=== PATIENT | male | born 1940 | race Caucasian/White ===

== ENCOUNTER 2017-12-22 08:23 | Inpatient (IN) ==
[2017-12-22] MEDS ORDERED: Chloraseptic Spray 177 ML BOTTLE MM PRN (12:40)
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
[2017-12-22] MEDS ORDERED: Naloxone 0.4 MG/ML INJ IVP PRN (13:03)
[2017-12-22] MEDS ORDERED: Ondansetron 4 MG/2 ML VIAL IVP PRN (13:03)
[2017-12-22 13:09] LABS: Hematocrit 29.5 % (37.5-50.1); Hemoglobin 9.5 g/dL (12.9-16.9)
[2017-12-22] MEDS ORDERED: D5% in Water 1,000 ML IVC PRN (13:47)
[2017-12-22] MEDS ORDERED: *HR* Dextrose 50 % in Water (Syg) 50 ML SYRINGE IVP PRN (13:47)
[2017-12-22] MEDS ORDERED: Dextrose Gel 15 GM/37.5 ML TUBE PO PRN ×2 (13:47)
[2017-12-22] MEDS: Ringers Solution, Lactated 1,000 ML IVC SCH ×2 (13:49→21:19)
[2017-12-22 13:54] LABS: Basophils % 0.1 %; Hematocrit 28.7 % (37.5-50.1); Hemoglobin 9.3 g/dL (12.9-16.9); Immature Granulocytes % 0.9 % (0-4); Lymphocytes # 1.8 K/mcL (0.6-4.6); Lymphocytes % 8.1 %; Mean Corpuscular HGB Conc 32.4 g/dL (31.6-35.5); Mean Corpuscular Hemoglobin 29.3 pg (28.0-33.3); Mean Corpuscular Volume 90.5 fL (83.0-100.0); Mean Platelet Volume 10.5 fL (9.4-12.4); Monocytes # 1.1 K/mcL (0.0-1.3); Monocytes % 4.9 %; Neutrophils # 19.2 K/mcL (1.6-8.9); Nucleated Red Blood Cells 0.1 /100 WBC (0); Platelet Count 321 K/mcL (140-400); Red Blood Count 3.17 M/mcL (4.19-5.50); Red Cell Distribution Width 14.2 % (11.5-14.5)
[2017-12-22 13:59] LABS: INR 1.2; Prothrombin Time 13.7 Seconds (9.4-12.1)
[2017-12-22 14:02] LABS: VBG HCO3 18 mEq/L (21-27); VBG PCO2 33 mmHg (41-51); VBG PH 7.34 pH Units (7.32-7.42); VBG PO2 67 mmHg (25-50)
[2017-12-22 14:18] LABS: Blood Urea Nitrogen 47 mg/dL (8-23); Carbon Dioxide 19 mEq/L (23-29); Chloride 107 mEq/L (98-107); Potassium 4.5 mEq/L (3.5-5.1); Sodium 143 mEq/L (136-145)
[2017-12-22 14:19] LABS: Alanine Aminotransferase 16 Units/L (7-52); Albumin 3.6 g/dL (3.5-5.7); Albumin/Globulin Ratio 1.9 (1.1-2.2); Alkaline Phosphatase 52 Units/L (34-104); Aspartate Amino Transferase 12 Units/L (13-39); BUN/Creatinine Ratio 48 (6-26); Bilirubin,Total 0.5 mg/dL (0.3-1.0); Calcium 8.2 mg/dL (8.6-10.3); Globulin 1.9 g/dL (2.4-3.5); Glucose 232 mg/dL (70-105); Magnesium 1.9 mg/dL (1.6-2.6); Osmolality,Calculated 316 (280-300); Total Protein 5.5 g/dL (6.4-8.9); eGFR For Non-African Americans > 60 (> 60)
[2017-12-22 14:23] LABS: Troponin I 0.06 ng/mL (< 0.04)
[2017-12-22] MEDS ORDERED: Insulin LISPRO 300 UNITS/3 ML VIAL SQ ONE (15:05)
[2017-12-22] MEDS: Insulin LISPRO 300 UNITS/3 ML VIAL SQ SCH ×2 (15:09→18:26)
[2017-12-22] MEDS: Pantoprazole 40 MG in 0.9 % Sodium Chloride Mini Bag 100 ML IVC SCH ×2 (15:11→21:19)
[2017-12-22 15:16] LABS: Acetaminophen < 10 mcg/mL (10-20); Ethanol < 10 mg/dL (Less than 10); Salicylate < 2.5 mg/dL (15.0-30.0)
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
[2017-12-22] MEDS: 0.9 % Sodium Chloride 250 ML IVC SCH (17:16)
[2017-12-22 17:59] LABS: Bilirubin,Urine Negative (Negative); Blood,Urine Negative (Negative); Clarity,Urine Clear (Clear); Color,Urine Yellow (Yellow); Glucose,Urine (UA) >=1000 mg/dL (Normal); Ketones,Urine 40 mg/dL (Negative); Leukocyte Esterase,Urine Negative (Negative); Nitrite,Urine Negative (Negative); PH,Urine 5.5 pH Units (5.0-8.0); Protein,Urine Negative (Neg-Trace); Specific Gravity,Urine 1.023 (1.010-1.025); Urobilinogen,Urine Normal (Normal)
[2017-12-22 21:35] LABS: Hematocrit 30.3 % (37.5-50.1); Hemoglobin 9.8 g/dL (12.9-16.9)
[2017-12-22 21:52] LABS: BUN/Creatinine Ratio 48 (6-26); Blood Urea Nitrogen 49 mg/dL (8-23); Calcium 8.5 mg/dL (8.6-10.3); Carbon Dioxide 19 mEq/L (23-29); Chloride 113 mEq/L (98-107); Glucose 216 mg/dL (70-105); Osmolality,Calculated 314 (280-300); Potassium 4.2 mEq/L (3.5-5.1); Sodium 142 mEq/L (136-145); eGFR For Non-African Americans > 60 (> 60)
[2017-12-23] MEDS: 0.9 % Sodium Chloride 250 ML IVC SCH ×2 (01:25→07:56)
[2017-12-23] MEDS: Insulin LISPRO 300 UNITS/3 ML VIAL SQ SCH ×4 (01:26→20:28)
[2017-12-23] MEDS: Pantoprazole 40 MG in 0.9 % Sodium Chloride Mini Bag 100 ML IVC SCH ×5 (03:17→22:16)
[2017-12-23 03:24] LABS: Basophils % 0.1 %; Lymphocytes % 9.7 %; Mean Platelet Volume 10.5 fL (9.4-12.4); Nucleated Red Blood Cells 0.4 /100 WBC (0)
[2017-12-23 03:25] LABS: Hematocrit 28.2 % (37.5-50.1); Hemoglobin 9.1 g/dL (12.9-16.9); Immature Granulocytes % 1.6 % (0-4); Lymphocytes # 2.6 K/mcL (0.6-4.6); Mean Corpuscular HGB Conc 32.3 g/dL (31.6-35.5); Mean Corpuscular Volume 89.8 fL (83.0-100.0); Monocytes % 9.1 %; Neutrophils # 21.3 K/mcL (1.6-8.9); Platelet Count 339 K/mcL (140-400); Red Blood Count 3.14 M/mcL (4.19-5.50); Red Cell Distribution Width 15.4 % (11.5-14.5); Segmented Neutrophils % 79.5 %
[2017-12-23 03:32] LABS: Monocytes # 2.4 K/mcL (0.0-1.3)
[2017-12-23 03:43] LABS: Alanine Aminotransferase 13 Units/L (7-52); Albumin 3.6 g/dL (3.5-5.7); Alkaline Phosphatase 50 Units/L (34-104); Aspartate Amino Transferase 11 Units/L (13-39); BUN/Creatinine Ratio 48 (6-26); Bilirubin,Total 0.8 mg/dL (0.3-1.0); Blood Urea Nitrogen 49 mg/dL (8-23); Calcium 8.6 mg/dL (8.6-10.3); Carbon Dioxide 18 mEq/L (23-29); Chloride 114 mEq/L (98-107); Globulin 1.8 g/dL (2.4-3.5); Glucose 218 mg/dL (70-105); Osmolality,Calculated 316 (280-300); Potassium 3.9 mEq/L (3.5-5.1); Sodium 143 mEq/L (136-145); Total Protein 5.4 g/dL (6.4-8.9); eGFR For Non-African Americans > 60 (> 60)
[2017-12-23 03:44] LABS: Chol/HDL Ratio 4.4 (0-4.9)
[2017-12-23 03:58] LABS: Thyroid Stimulating Hormone 0.787 mcIU/mL (0.340-5.600)
[2017-12-23 04:12] LABS: Macrocytosis Present (Not Present); Platelet Estimate Normal (Normal); Polychromasia 1+ (Not Present)
[2017-12-23 08:29] LABS: Hematocrit 28.4 % (37.5-50.1)
--- NOTE | 2017-12-23 08:40 | Internal Med Progress Note ---
Hospitalist Progress Note - Encounter Date of Encounter: 12/23/17 Time of Encounter: 08:30 - Subjective Interval History: awake, ngt out by surgery. + nausea, no emesis, no abd pain. No further black/ bloody bms. Denies fevers or chills. + dry mouth. awaiting egd and cscope - Exam Vitals: Temp Pulse Resp BP Pulse Ox 98.6 F 105 20 139/84 99 12/23/17 06:59 12/23/17 06:59 12/23/17 06:59 12/23/17 06:59 12/23/17 06:59 Exam: General: awake, alert, appears stated age HEENT: pupils equal, round,dry mucus membranes, no conjuntival pallor, Cardiovascular: reg rate and rhythm, normal S1 & S2, no murmurs no lower extremity edema Lungs:Normal breath sounds, no wheezes, or crackles. Normal respiratory effort on ra Abdomen:Soft, non tender, non-distended, no rigidity, + bowel sounds, no guarding, no hsm appreciated Neurological: AAOx3, CN grossly intact Skin:Nno pallor, no jaundice, no rash, purpura or petechiae - Assessment and Plan (1) Upper GI bleeding Current Visit: Yes Status: Acute Assessment and Plan: daily asa and nsaid use -no abd imaging obtained at [facility], came [facility] with ngt in place drainging coffee ground emesis -he also had constipation for days prior to onset of symptoms, hx of hernia, gb surgery, need to rule out obstruction with amount of NGT outpt -ct a/p without acute findings, no obstruction, no apparent infection, no free air Agressive IVFs -1 gm hgb drop since [place] [facility] 10-->9.3 on admit -1 unit prbc on admit 12/22 serial h/hs stable currently cont protonix gtt diet addvanced to clears last night, bowel prep and no npo awating egd and cscope 12/23 stool studies pending surgery following (2) Acute blood loss anemia Current Visit: Yes Status: Acute Assessment and Plan: Hgb most recently 15 on record review hgb 10 at [facility], drop to 9.3 on admit labs here 2/2 acute gi bleed -1 unit prbc 12/22 -given mild trop elevation as below keep hgb >8 -serial h/hs have now remained [place] cont to monitor (3) Diabetes mellitus Current Visit: Yes Status: Acute Assessment and Plan: Hyperglycemia at [facility] with bs 400s, BHB >2, no anion gap--HHNK with one time 8 unit bolus of insulin 1L NS and bs to 200s, did NOT start insulin gtt on oral agents at home will need to rule out infection while here as cause of hyperglycemia with leukocytosis -bs here low 200s -as npo q 6 hr accu checks and SSI for now, would rather him be somewhat high is acutely seriously ill setting -agressive ivfs wtih LR -prn hypoglycemics -repeat BHB >2 -vbg without acidosis -leukocytosis garcia as below -UA >1000 glc, + ketones -cont to monitor closely and adjust insulin as needed, given he is npo will hold on adjustments untill after procedure to assess what intake is anticipated for today (4) Leukocytosis Current Visit: Yes Status: Acute Assessment and Plan: WBC 22.4, may be stress reaction but need to rule out infectious etiology, increasing, without fever -CXR [facility] neg -bl cx obtained at [facility] pending -check ua: neg, no cx sent -ct a/p neg -check stool studies, pending -no abx at this time as no identifiable source of infection, afebrile -cont to monitor (5) COPD (chronic obstructive pulmonary disease) Current Visit: Yes Status: Chronic Assessment and Plan: stable at this time -not on any standing nebs/inhalers at home -no home o2 -o2 prn, nebs prn (6) HTN (hypertension) Current Visit: Yes Status: Chronic Assessment and Plan: Notes he has not needed to take any home antihypertensive for months due to normotensive bps without them -monitor bp trends, no antihypertensives in acute gib setting (7) Hyperlipidemia Current Visit: Yes Status: Chronic Assessment and Plan: hold home statin at this time (8) Metabolic acidosis, increased anion gap Current Visit: Yes Status: Acute Assessment and Plan: Noted to have bicarb of 13 and no anion gap at [facility] Here he has elevated AG 17 and bicarb now up to 19 AG now closed, bicarb stable -vbg reviewed, no acidosis -lactate was 5s at [facility] and 1.7 here -given asa use--agma--checked stat etoh, asa and Tylenol levels -all neg -cont LR fluids (9) Troponin level elevated Current Visit: Yes Status: Acute Assessment and Plan: Troponin Elevation Trop on admission here checked due to gib and anemia--0.06 -no cad hx, + hx diabetes, htn, hld -pt notes history of normal stress test outpt -tele -trend trops- peaked at 0.06 and now normal, asx -keep hgb >8 -ekg reviewed and appeared sinus rhythm and no st depression elevation of twi can be identified, + baseline artifact -tsh wnl, lipid panel w low hdl otherwise wnl, a1c pending DVT Prophylaxis: scds - Time Spent with Patient Total time spent is greater than 50% in coordination of care (as documented) at patient's floor/unit and/or counseling patient: 25 - 35 minutes Plan of Care Discussed with: patient Internal Medicine: Result - Labs CBC & Chem 7: 12/23/17 03:11 12/23/17 03:11 Labs: Short CBC 12/22/17 12/22/17 12/22/17 Range/Units 13:00 13:45 21:10 WBC 22.4 H (4.3-11.1) K/mcL Hgb 9.5 L 9.3 L 9.8 L (12.9-16.9) g/dL Hct 29.5 L 28.7 L 30.3 L (37.5-50.1) % Plt Count 321 (140-400) K/mcL Neutrophils # 19.2 H (1.6-8.9) K/mcL 12/23/17 Range/Units 03:11 WBC 26.8 H (4.3-11.1) K/mcL Hgb 9.1 L (12.9-16.9) g/dL Hct 28.2 L (37.5-50.1) % Plt Count 339 (140-400) K/mcL Neutrophils # 21.3 H (1.6-8.9) K/mcL BMP 12/22/17 12/22/17 12/23/17 13:45 21:10 03:11 Sodium 143 142 143 Potassium 4.5 4.2 3.9 Chloride 107 113 H 114 H Carbon Dioxide 19 L 19 L 18 L BUN 47 H 49 H 49 H Creatinine 0.98 1.02 1.03 Glucose 232 H 216 H 218 H Calcium 8.2 L 8.5 L 8.6 Cardiac Enzymes 12/22/17 12/22/17 12/23/17 Range/Units 13:45 21:10 03:11 Troponin I 0.06 H* 0.04 H* 0.03 (< 0.04) ng/mL Liver Function 12/22/17 12/23/17 Range/Units 13:45 03:11 Total Bilirubin 0.5 0.8 (0.3-1.0) mg/dL AST 12 L 11 L (13-39) Units/L ALT 16 13 (7-52) Units/L Alkaline Phosphatase 52 50 (34-104) Units/L Albumin 3.6 3.6 (3.5-5.7) g/dL Urine 12/22/17 Range/Units 17:37 Urine Color Yellow (Yellow) Urine Clarity Clear (Clear) Urine pH 5.5 (5.0-8.0) pH Units Ur Specific Hubbell 1.023 (1.010-1.025) Urine Protein Negative (Neg-Trace) mg/dL Urine Glucose (UA) >=1000 H (Normal) mg/dL - ABG Interpretation ABG results: PT/INR, D-dimer PT 13.7 Seconds (9.4-12.1) H 12/22/17 13:45 - Impressions Impressions Abdomen/Pelvis CT 12/22/17 13:36 IMPRESSION: 1. Nonobstructing calculi bilateral kidneys. 2. Left parapelvic and cortical renal cysts. 3. Cholecystectomy. 4. NG tube is in place, tip at the gastric mid body. 5. Diverticulosis coli without CT evidence of acute diverticulitis. 6. Calcific atherosclerotic disease aorta. D/ / Ajay Monzon / Ajay Monzon Interpreting Provider: Ajay Monzon - VTE Reasons for not Prescribing Prophylaxis: Medical contraindication Documentation of Mechanical Device: Intermittent pneumatic compression device Consult Discharge Plan - Plan Referrals: Winnie Parikh, ANGLESMITH [Primary Care Provider] - (3) Diabetes mellitus Qualifiers: Diabetes mellitus type: type 2 Diabetes mellitus terminal worker insulin use: without terminal worker use Diabetes mellitus complication status: with unspecified complications Qualified Code(s): E11.8 - Type 2 diabetes mellitus with unspecified complications (4) Leukocytosis Qualifiers: Leukocytosis type: unspecified Qualified Code(s): D72.829 - Elevated white blood cell count, unspecified (5) COPD (chronic obstructive pulmonary disease) Qualifiers: COPD type: unspecified COPD Qualified Code(s): J44.9 - Chronic obstructive pulmonary disease, unspecified (6) HTN (hypertension) Qualifiers: Hypertension type: essential hypertension Qualified Code(s): I10 - Essential (primary) hypertension (7) Hyperlipidemia Qualifiers: Hyperlipidemia type: unspecified Qualified Code(s): E78.5 - Hyperlipidemia, unspecified
[2017-12-23] MEDS ORDERED: *HR* Midazolam HCl 5 MG/5 ML VIAL IVP ONE (09:28)
[2017-12-23] MEDS ORDERED: *HR* FentaNYL (PF) 100 MCG/2 ML VIAL ONE (09:28)
--- NOTE | 2017-12-23 09:28 | General Surgery Progress Note ---
Date of Encounter: 12/23/17 Time of Encounter: 09:27 - Assessment and Plan (1) Upper GI bleeding Current Visit: Yes Status: Acute 77M with UGIB and LGIB; will plan for EGD today pending those findings will determine the timing for a colooscopy; Subjective Patient reports: no new complaints Objective Vital Signs - Last 8 Hours Temp Pulse Resp BP Pulse Ox 12/23/17 06:59 98.6 F 105 20 139/84 99 12/23/17 03:52 98.3 F 102 20 153/77 100 Intake and Output 12/22/17 12/23/17 12/23/17 23:59 07:59 15:59 Intake Total 1600 / 1600 300 / 300 Output Total 1775 / 1775 200 / 200 Balance -175 / -175 100 / 100 Intake: IV Fluids 1250 / 1250 300 / 300 0.9 % Sodium Chloride 250 ML @ 150 / 150 100 / 100 25 mls/hr IVC .Q10H NITIN Rx#: [id number] Protonix 40 MG In 0.9 % Sodium 100 / 100 200 / 200 Chloride (Mini-Bag +) 100 ML @ 20 mls/hr IVC .Q5H NITIN Rx#: [id number] Lactated Ringers 1,000 ML @ 125 1000 / 1000 mls/hr IVC .Q8H NITIN Rx#: [id number] Blood Product 350 / 350 Rbcs Leuko Poor As-1 Unit 350 / 350 [id number] Output: Urine 825 / 825 Gastric Tube Lavage Amount 950 / 950 200 / 200 Left Nare 950 / 950 200 / 200 Other: Meal NPO Percent of Meal Consumed 0% # Voids 1 Weight 105.9 kg Blood Glucose* 204 223 Patient Weight 12/23/17 23:59 Weight 105.9 kg - General physical appearance no distress - Respiratory normal expansion, normal respiratory effort - Cardiovascular Cardiovascular exam: Present: RRR - Abdomen Abdomen: Present: soft, non tender - Neurologic CN 2-12 grossly intact - Labs 12/23/17 08:20 12/23/17 03:11 Diabetes panel 12/22/17 12/22/17 12/23/17 Range/Units 13:45 21:10 03:11 Sodium 143 142 (136-145) mEq/L Potassium 4.5 4.2 (3.5-5.1) mEq/L Chloride 107 113 H (98-107) mEq/L Carbon Dioxide 19 L 19 L (23-29) mEq/L BUN 47 H 49 H (8-23) mg/dL Creatinine 0.98 1.02 (0.70-1.30) mg/dL Glucose 232 H 216 H (70-105) mg/dL Calcium 8.2 L 8.5 L (8.6-10.3) mg/dL AST 12 L (13-39) Units/L ALT 16 (7-52) Units/L Alkaline Phosphatase 52 (34-104) Units/L Albumin 3.6 (3.5-5.7) g/dL Triglycerides 122 (< 150) mg/dL HDL Cholesterol 20 L (40-59) mg/dL 12/23/17 Range/Units 03:11 Sodium 143 (136-145) mEq/L Potassium 3.9 (3.5-5.1) mEq/L Chloride 114 H (98-107) mEq/L Carbon Dioxide 18 L (23-29) mEq/L BUN 49 H (8-23) mg/dL Creatinine 1.03 (0.70-1.30) mg/dL Glucose 218 H (70-105) mg/dL Calcium 8.6 (8.6-10.3) mg/dL AST 11 L (13-39) Units/L ALT 13 (7-52) Units/L Alkaline Phosphatase 50 (34-104) Units/L Albumin 3.6 (3.5-5.7) g/dL Triglycerides (< 150) mg/dL HDL Cholesterol (40-59) mg/dL Thyroid panel 12/23/17 Range/Units 03:11 TSH 0.787 (0.340-5.600) mcIU/mL Calcium panel 12/22/17 12/22/17 12/23/17 Range/Units 13:45 21:10 03:11 Calcium 8.2 L 8.5 L 8.6 (8.6-10.3) mg/dL Albumin 3.6 3.6 (3.5-5.7) g/dL Pituitary panel 12/22/17 12/22/17 12/23/17 Range/Units 13:45 21:10 03:11 Sodium 143 142 (136-145) mEq/L Potassium 4.5 4.2 (3.5-5.1) mEq/L Chloride 107 113 H (98-107) mEq/L Carbon Dioxide 19 L 19 L (23-29) mEq/L BUN 47 H 49 H (8-23) mg/dL Creatinine 0.98 1.02 (0.70-1.30) mg/dL Glucose 232 H 216 H (70-105) mg/dL Calcium 8.2 L 8.5 L (8.6-10.3) mg/dL TSH 0.787 (0.340-5.600) mcIU/mL 12/23/17 Range/Units 03:11 Sodium 143 (136-145) mEq/L Potassium 3.9 (3.5-5.1) mEq/L Chloride 114 H (98-107) mEq/L Carbon Dioxide 18 L (23-29) mEq/L BUN 49 H (8-23) mg/dL Creatinine 1.03 (0.70-1.30) mg/dL Glucose 218 H (70-105) mg/dL Calcium 8.6 (8.6-10.3) mg/dL TSH (0.340-5.600) mcIU/mL Adrenal panel 12/22/17 12/22/17 12/23/17 Range/Units 13:45 21:10 03:11 Sodium 143 142 143 (136-145) mEq/L Potassium 4.5 4.2 3.9 (3.5-5.1) mEq/L Chloride 107 113 H 114 H (98-107) mEq/L Carbon Dioxide 19 L 19 L 18 L (23-29) mEq/L BUN 47 H 49 H 49 H (8-23) mg/dL Creatinine 0.98 1.02 1.03 (0.70-1.30) mg/dL Glucose 232 H 216 H 218 H (70-105) mg/dL Calcium 8.2 L 8.5 L 8.6 (8.6-10.3) mg/dL Total Bilirubin 0.5 0.8 (0.3-1.0) mg/dL AST 12 L 11 L (13-39) Units/L ALT 16 13 (7-52) Units/L Alkaline Phosphatase 52 50 (34-104) Units/L Albumin 3.6 3.6 (3.5-5.7) g/dL - VTE Reasons for not Prescribing Prophylaxis: Medical contraindication Documentation of Mechanical Device: Intermittent pneumatic compression device Consult Discharge Plan - Plan Referrals: Winnie Parikh, INSURANCE AND BENEFITS CLERK [Primary Care Provider] -
--- NOTE | 2017-12-23 09:28 | Pre-Sedation Evaluation ---
Pre-sedation evaluation - Pre-sedation checklist Date of procedure: 12/23/17 Procedure: EGD Recent Vitals: Last Vital Signs Temp 98.6 F 12/23/17 06:59 Pulse 105 12/23/17 06:59 Resp 20 12/23/17 06:59 BP 139/84 12/23/17 06:59 Pulse Ox 99 12/23/17 06:59 H&P (including ROS) documented in medical record: Yes Dietary Status: NPO after Midnight ASA Classification *see protocol: CLASS II-Mild systemic disease Cardiac Registry (Cardio Only) - Functional Capacity - Clincal Frailty Scale
[2017-12-23] MEDS: *HR* FentaNYL (PF) 100 MCG/2 ML VIAL IVP ONE ×2 (10:20→14:23)
[2017-12-23] MEDS: 0.9 % Sodium Chloride 500 ML IVC SCH ×2 (10:21→20:22)
[2017-12-23] MEDS: *HR* Midazolam HCl 5 MG/5 ML VIAL IVP ONE ×2 (10:21→14:23)
[2017-12-23 10:54] LABS: Estimated Average Glucose 146 mg/dl; Hemoglobin A1C 6.7 %
[2017-12-23] MEDS ORDERED: Insulin LISPRO 300 UNITS/3 ML VIAL SQ SCH (12:00)
--- NOTE | 2017-12-23 12:12 | Electrocardiograph Report ---
[address] [place], [place] [address] Test Date: 2017-12-23 Pat Name: Jose Francisco Redd Department: 110 Room: 2N07 Gender: M Dialysis Social Worker: : 1940 Requested By: Nasima Valadez Order Number: [id number] Reading MD: Jess Eaton Measurements Intervals [place] Rate: 100 P: 13 GA: 132 QRS: 16 QRSD: 94 T: 30 QT: 337 QTc: 394 Interpretive Statements SINUS TACHYCARDIA MODERATE T-WAVE ABNORMALITY, CONSIDER LATERAL ISCHEMIA Electronically Signed On 12-23-2017 12:10:38 EDT by Jess Eaton
[2017-12-23] MEDS: Sucralfate 1 GM TABLET PO SCH ×3 (12:41→22:17)
[2017-12-23 14:02] LABS: Hematocrit 27.3 % (37.5-50.1); Hemoglobin 8.8 g/dL (12.9-16.9)
[2017-12-24] MEDS: Pantoprazole 40 MG in 0.9 % Sodium Chloride Mini Bag 100 ML IVC SCH ×2 (03:45→06:20)
[2017-12-24 05:25] LABS: Basophils % 0.2 %; Hematocrit 24.6 % (37.5-50.1); Hemoglobin 7.8 g/dL (12.9-16.9); Immature Granulocytes % 2.3 % (0-4); Lymphocytes # 3.4 K/mcL (0.6-4.6); Mean Corpuscular HGB Conc 31.7 g/dL (31.6-35.5); Mean Corpuscular Hemoglobin 29.8 pg (28.0-33.3); Mean Corpuscular Volume 93.9 fL (83.0-100.0); Mean Platelet Volume 10.5 fL (9.4-12.4); Monocytes # 2.3 K/mcL (0.0-1.3); Monocytes % 9.9 %; Neutrophils # 16.7 K/mcL (1.6-8.9); Platelet Count 330 K/mcL (140-400); Red Blood Count 2.62 M/mcL (4.19-5.50); Red Cell Distribution Width 16.8 % (11.5-14.5); Segmented Neutrophils % 72.6 %
[2017-12-24 05:40] LABS: BUN/Creatinine Ratio 43 (6-26); Blood Urea Nitrogen 43 mg/dL (8-23); Calcium 8.3 mg/dL (8.6-10.3); Carbon Dioxide 22 mEq/L (23-29); Chloride 110 mEq/L (98-107); Glucose 211 mg/dL (70-105); Magnesium 2.1 mg/dL (1.6-2.6); Osmolality,Calculated 311 (280-300); Potassium 3.6 mEq/L (3.5-5.1); Sodium 142 mEq/L (136-145); eGFR For Non-African Americans > 60 (> 60)
[2017-12-24] MEDS: 0.9 % Sodium Chloride 500 ML IVC SCH (06:20)
[2017-12-24] MEDS: Sucralfate 1 GM TABLET PO SCH ×4 (06:21→20:44)
[2017-12-24] MEDS: Insulin LISPRO 300 UNITS/3 ML VIAL SQ SCH ×4 (08:28→20:45)
--- NOTE | 2017-12-24 08:33 | General Surgery Progress Note ---
Date of Encounter: 12/24/17 Time of Encounter: 08:30 - Assessment and Plan (1) Upper GI bleeding Current Visit: Yes Status: Acute 77M with UGIB and LGIB; gastric ulcers found on EGD; now with LLQ abdominal pain ; CLD, bowel prep plan for colonoscopy tomorrow will reassess abdominal pain later today; if still having pain or worsening pain , then will order CT scan Subjective Patient reports: no new complaints Objective Vital Signs - Last 8 Hours Temp Pulse Resp BP Pulse Ox 12/24/17 07:11 98.3 F 86 18 148/67 100 12/24/17 03:50 17 100 12/24/17 03:36 99.1 F 92 20 153/69 100 Intake and Output 12/23/17 12/24/17 12/24/17 23:59 07:59 15:59 Intake Total 2170 / 2170 162.6 / 162.6 Output Total 375 / 375 900 / 900 Balance 1795 / 1795 -737.4 / -737.4 Intake: IV Fluids 1350 / 1350 162.6 / 162.6 0.9 % Sodium Chloride 500 ML @ 0 / 0 50 mls/hr IVC .Q10H NITIN Rx#: [id number] 0.9 % Sodium Chloride 250 ML @ 250 / 250 25 mls/hr IVC .Q10H NITIN Rx#: [id number] Protonix 40 MG In 0.9 % Sodium 100 / 100 162.6 / 162.6 Chloride (Mini-Bag +) 100 ML @ 20 mls/hr IVC .Q5H NITIN Rx#: [id number] Oral 820 / 820 Output: Urine 375 / 375 900 / 900 Other: Meal Dinner Percent of Meal Consumed 5% Weight 106.7 kg Blood Glucose* 279 179 Patient Weight 12/24/17 23:59 Weight 106.7 kg - General physical appearance no distress - Respiratory normal expansion, normal respiratory effort - Cardiovascular Cardiovascular exam: Present: RRR - Abdomen Abdomen: Present: soft, tender Abdominal Tenderness: LLQ - Neurologic CN 2-12 grossly intact - Psychiatric oriented to time, oriented to person, oriented to place - Labs 12/24/17 05:03 12/24/17 05:03 Diabetes panel 12/23/17 12/24/17 Range/Units 03:11 05:03 Sodium 142 (136-145) mEq/L Potassium 3.6 (3.5-5.1) mEq/L Chloride 110 H (98-107) mEq/L Carbon Dioxide 22 L (23-29) mEq/L BUN 43 H (8-23) mg/dL Creatinine 0.99 (0.70-1.30) mg/dL Glucose 211 H (70-105) mg/dL Hemoglobin A1c 6.7 H ( - 5.6) % Calcium 8.3 L (8.6-10.3) mg/dL Calcium panel 12/24/17 Range/Units 05:03 Calcium 8.3 L (8.6-10.3) mg/dL Pituitary panel 12/24/17 Range/Units 05:03 Sodium 142 (136-145) mEq/L Potassium 3.6 (3.5-5.1) mEq/L Chloride 110 H (98-107) mEq/L Carbon Dioxide 22 L (23-29) mEq/L BUN 43 H (8-23) mg/dL Creatinine 0.99 (0.70-1.30) mg/dL Glucose 211 H (70-105) mg/dL Calcium 8.3 L (8.6-10.3) mg/dL Adrenal panel 12/24/17 Range/Units 05:03 Sodium 142 (136-145) mEq/L Potassium 3.6 (3.5-5.1) mEq/L Chloride 110 H (98-107) mEq/L Carbon Dioxide 22 L (23-29) mEq/L BUN 43 H (8-23) mg/dL Creatinine 0.99 (0.70-1.30) mg/dL Glucose 211 H (70-105) mg/dL Calcium 8.3 L (8.6-10.3) mg/dL - VTE Reasons for not Prescribing Prophylaxis: Medical contraindication Documentation of Mechanical Device: Intermittent pneumatic compression device Consult Discharge Plan - Plan Referrals: Winnie Parikh CNP [Primary Care Provider] - 01/01/18 11:00 am
[2017-12-24] MEDS ORDERED: 0.9 % Sodium Chloride 250 ML ONE (11:43)
[2017-12-24] MEDS ORDERED: Isovue-370 500 ML INFUS..BTL IV ONE (12:13)
[2017-12-24] MEDS: 0.9 % Sodium Chloride 250 ML IVC SCH (12:34)
--- NOTE | 2017-12-24 12:39 | Internal Med Progress Note ---
Hospitalist Progress Note - Encounter Date of Encounter: 12/24/17 Time of Encounter: 12:44 - Subjective Interval History: No acute events. Denies chest pain, SOB, n/v. Denies abdominal pain. He has some fatigue that is improving he now can ambulate with assistance. - Exam Vitals: Temp Pulse Resp BP Pulse Ox 98.7 F 87 18 142/71 100 12/24/17 12:27 12/24/17 12:27 12/24/17 12:27 12/24/17 12:27 12/24/17 12:27 Exam: General: awake, alert, appears stated age HEENT: dry mucus membranes, + conjunctival pallor Cardiovascular: reg rate and rhythm, normal S1 & S2, no murmurs no lower extremity edema Lungs:Normal breath sounds, no wheezes, or crackles. Normal respiratory effort on ra Abdomen:Soft, non tender, non-distended, no rigidity, + bowel sounds, no guarding Neurological: AAOx3, CN grossly intact Ext: trace bipedal edema - Assessment and Plan (1) Upper GI bleeding Current Visit: Yes Status: Acute Assessment and Plan: daily asa and nsaid use -no abd imaging obtained at [place], came to [facility] with ngt in place drainging coffee ground emesis -he also had constipation for days prior to onset of symptoms, hx of hernia, gb surgery, need to rule out obstruction with amount of NGT outpt -ct a/p without acute findings, no obstruction, no apparent infection, no free air Agressive IVFs -1 gm hgb drop since [place] 10-->9.3 on admit -1 unit prbc on admit 12/22 H pylori biopsy sent after EGD surgery following Hgb 7.8 today, will trasnfuse additional 2 units PRBC today Gastritis with ulcers seen on EGD 12.23, continue ppi and carafate. CT abdomen/pelvis (with contrast) today. (2) Acute blood loss anemia Current Visit: Yes Status: Acute Assessment and Plan: Hgb most recently 15 on record review hgb 10 at [place], drop to 9.3 on admit labs here 2/2 acute gi bleed -1 unit prbc 12/22 -given mild trop elevation as below keep hgb >8 Hemoglobin 7.8 today, will trasnfuse additional 2 units PRBC. Per Surgery eval, possible colonoscopy tomorrow, pending CT abdomen/pelvis results. (3) Diabetes mellitus Current Visit: Yes Status: Acute Assessment and Plan: Hyperglycemia at [place] with bs 400s, BHB >2, no anion gap--HHNK with one time 8 unit bolus of insulin 1L NS and bs to 200s, did NOT start insulin gtt on oral agents at home will need to rule out infection while here as cause of hyperglycemia with leukocytosis -bs here low 200s -as npo q 6 hr accu checks and SSI for now, would rather him be somewhat high is acutely seriously ill setting -agressive ivfs wtih LR -prn hypoglycemics -repeat BHB >2 -vbg without acidosis -leukocytosis garcia as below -UA >1000 glc, + ketones Insulin sliding scale and diabetic diet. (4) Leukocytosis Current Visit: Yes Status: Acute Assessment and Plan: WBC 22.4, may be stress reaction but need to rule out infectious etiology, increasing, without fever -CXR [place] neg -bl cx obtained at [place] pending -check ua: neg, no cx sent -ct a/p neg -check stool studies, pending -no abx at this time as no identifiable source of infection, afebrile. There is CT abdomen/pelvis scheduled for today. Will await results if patient possibly has a colitis or diverticulitis. Currently hemodynamically stable, afebrile. (5) COPD (chronic obstructive pulmonary disease) Current Visit: Yes Status: Chronic Assessment and Plan: stable at this time -not on any standing nebs/inhalers at home -no home o2 -o2 prn, nebs prn (6) HTN (hypertension) Current Visit: Yes Status: Chronic Assessment and Plan: Notes he has not needed to take any home antihypertensive for months due to normotensive bps without them -monitor bp trends, no antihypertensives in acute gib setting (7) Hyperlipidemia Current Visit: Yes Status: Chronic Assessment and Plan: hold home statin at this time (8) Metabolic acidosis, increased anion gap Current Visit: Yes Status: Acute Assessment and Plan: Noted to have bicarb of 13 and no anion gap at [facility] Here he has elevated AG 17 and bicarb now up to 19 AG now closed, bicarb stable -vbg reviewed, no acidosis -lactate was 5s at [place] and 1.7 here -given asa use--agma--checked stat etoh, asa and Tylenol levels -all neg Hold fluids, while getting PRBC currently. (9) Troponin level elevated Current Visit: Yes Status: Acute Assessment and Plan: Troponin Elevation Trop on admission here checked due to gib and anemia--0.06 -no cad hx, + hx diabetes, htn, hld -pt notes history of normal stress test outpt -trend trops- peaked at 0.06 and now normal, asx, now is negative. -ekg reviewed and appeared sinus rhythm and no st depression elevation of twi can be identified, + baseline artifact -tsh wnl, lipid panel w low hdl otherwise wnl Troponin now wnl. - Time Spent with Patient Total time spent is greater than 50% in coordination of care (as documented) at patient's floor/unit and/or counseling patient: Internal Medicine: Result - Labs CBC & Chem 7: 12/24/17 05:03 12/24/17 05:03 Labs: Short CBC 12/23/17 12/24/17 Range/Units 13:34 05:03 WBC 22.9 H (4.3-11.1) K/mcL Hgb 8.8 L 7.8 L (12.9-16.9) g/dL Hct 27.3 L 24.6 L (37.5-50.1) % Plt Count 330 (140-400) K/mcL Neutrophils # 16.7 H (1.6-8.9) K/mcL BMP 12/24/17 05:03 Sodium 142 Potassium 3.6 Chloride 110 H Carbon Dioxide 22 L BUN 43 H Creatinine 0.99 Glucose 211 H Calcium 8.3 L - ABG Interpretation ABG results: PT/INR, D-dimer PT 13.7 Seconds (9.4-12.1) H 12/22/17 13:45 - VTE Reasons for not Prescribing Prophylaxis: Medical contraindication Documentation of Mechanical Device: Intermittent pneumatic compression device Consult Discharge Plan - Plan Referrals: Winnie Parikh, FIELD SAMPLING TECHNICIAN [Primary Care Provider] - 01/01/18 11:00 am (3) Diabetes mellitus Qualifiers: Diabetes mellitus type: type 2 Diabetes mellitus nursing home insulin use: without terminal clerk use Diabetes mellitus complication status: with unspecified complications Qualified Code(s): E11.8 - Type 2 diabetes mellitus with unspecified complications (4) Leukocytosis Qualifiers: Leukocytosis type: unspecified Qualified Code(s): D72.829 - Elevated white blood cell count, unspecified (5) COPD (chronic obstructive pulmonary disease) Qualifiers: COPD type: unspecified COPD Qualified Code(s): J44.9 - Chronic obstructive pulmonary disease, unspecified (6) HTN (hypertension) Qualifiers: Hypertension type: essential hypertension Qualified Code(s): I10 - Essential (primary) hypertension (7) Hyperlipidemia Qualifiers: Hyperlipidemia type: unspecified Qualified Code(s): E78.5 - Hyperlipidemia, unspecified
[2017-12-24] MEDS ORDERED: Polyethylene Glycol 3350 255 GM POWDER PO ONE (15:00)
[2017-12-25 05:34] LABS: Basophils % 0.2 %; Eosinophils # 0.1 K/mcL (0.0-0.6); Eosinophils % 0.6 %; Hematocrit 25.4 % (37.5-50.1); Hemoglobin 8.3 g/dL (12.9-16.9); Immature Granulocytes % 1.4 % (0-4); Lymphocytes # 2.8 K/mcL (0.6-4.6); Lymphocytes % 22.1 %; Mean Corpuscular HGB Conc 32.7 g/dL (31.6-35.5); Mean Corpuscular Hemoglobin 29.6 pg (28.0-33.3); Mean Corpuscular Volume 90.7 fL (83.0-100.0); Mean Platelet Volume 10.5 fL (9.4-12.4); Monocytes # 1.2 K/mcL (0.0-1.3); Monocytes % 9.4 %; Neutrophils # 8.5 K/mcL (1.6-8.9); Nucleated Red Blood Cells 0.8 /100 WBC (0); Platelet Count 262 K/mcL (140-400); Red Cell Distribution Width 17.4 % (11.5-14.5); Segmented Neutrophils % 66.3 %
[2017-12-25 05:49] LABS: BUN/Creatinine Ratio 30 (6-26); Blood Urea Nitrogen 25 mg/dL (8-23); Calcium 8.1 mg/dL (8.6-10.3); Carbon Dioxide 23 mEq/L (23-29); Chloride 108 mEq/L (98-107); Glucose 181 mg/dL (70-105); Osmolality,Calculated 297 (280-300); Potassium 3.3 mEq/L (3.5-5.1); Sodium 139 mEq/L (136-145); eGFR For Non-African Americans > 60 (> 60)
[2017-12-25] MEDS ORDERED: *HR* Midazolam HCl 2 MG/2 ML VIAL IVP ONE (08:00)
[2017-12-25] MEDS ORDERED: Simethicone 40 MG/0.6 ML MLS IR ONE (08:00)
[2017-12-25] MEDS ORDERED: *HR* FentaNYL (PF) 100 MCG/2 ML VIAL IVP ONE (08:00)
--- NOTE | 2017-12-25 08:00 | Pre-Sedation Evaluation ---
Pre-sedation evaluation - Pre-sedation checklist Date of procedure: 12/23/17 Procedure: colonoscopy Recent Vitals: Last Vital Signs Temp 98.4 F 12/25/17 07:40 Pulse 73 12/25/17 07:40 Resp 18 12/25/17 07:40 BP 153/73 12/25/17 07:40 Pulse Ox 100 12/25/17 07:40 H&P (including ROS) documented in medical record: Yes Dietary Status: NPO after Midnight Dentition: No loose teeth or bridges ASA Classification *see protocol: CLASS III-Severe systemic disease Cardiac Registry (Cardio Only) - Functional Capacity - Clincal Frailty Scale
--- NOTE | 2017-12-25 08:00 | General Surgery Progress Note ---
Date of Encounter: 12/25/17 Time of Encounter: 07:59 - Assessment and Plan (1) Upper GI bleeding Current Visit: Yes Status: Acute 77M with UGIB and LGIB; gastric ulcers found on EGD; plan for colonoscopy today Subjective Patient reports: no new complaints Objective Vital Signs - Last 8 Hours Temp Pulse Resp BP Pulse Ox 12/25/17 07:40 98.4 F 73 18 153/73 100 12/25/17 03:15 98.8 F 77 19 144/65 100 Intake and Output 12/24/17 12/24/17 12/25/17 15:59 23:59 07:59 Intake Total 708 / 708 700 / 700 Output Total 400 / 400 Balance 308 / 308 700 / 700 Intake: IV Fluids 350 / 350 0.9 % Sodium Chloride 100 ML @ 100 / 100 0 mls/hr .ROUTE .STK-MED ONE Rx #:[id number] 0.9 % Sodium Chloride 250 ML @ 250 / 250 25 mls/hr IVC .Q10H [facility] Rx#: [id number] Oral 400 / 400 Blood Product 308 / 308 350 / 350 Rbcs Leuko Poor As-1 Unit 350 / 350 [id number] Rbcs Leuko Poor As-1 Unit 308 / 308 [id number] Output: Urine 400 / 400 Other: Meal Clears Percent of Meal Consumed 0% Stool Size Moderate Moderate Stool Consistency liquid liquid formed Stool Characteristics Seedy Stool Color Brown Green Black Black # Bowel Movements 1 1 Weight 107.1 kg Blood Glucose* 262 242 188 Patient Weight 12/25/17 23:59 Weight 107.1 kg - General physical appearance no distress - Respiratory normal expansion, normal respiratory effort - Cardiovascular Cardiovascular exam: Present: RRR - Abdomen Abdomen: Present: soft, non tender - Neurologic CN 2-12 grossly intact - Labs 12/25/17 05:01 12/25/17 05:01 Diabetes panel 12/25/17 Range/Units 05:01 Sodium 139 (136-145) mEq/L Potassium 3.3 L (3.5-5.1) mEq/L Chloride 108 H (98-107) mEq/L Carbon Dioxide 23 (23-29) mEq/L BUN 25 H (8-23) mg/dL Creatinine 0.83 (0.70-1.30) mg/dL Glucose 181 H (70-105) mg/dL Calcium 8.1 L (8.6-10.3) mg/dL Calcium panel 12/25/17 Range/Units 05:01 Calcium 8.1 L (8.6-10.3) mg/dL Pituitary panel 12/25/17 Range/Units 05:01 Sodium 139 (136-145) mEq/L Potassium 3.3 L (3.5-5.1) mEq/L Chloride 108 H (98-107) mEq/L Carbon Dioxide 23 (23-29) mEq/L BUN 25 H (8-23) mg/dL Creatinine 0.83 (0.70-1.30) mg/dL Glucose 181 H (70-105) mg/dL Calcium 8.1 L (8.6-10.3) mg/dL Adrenal panel 12/25/17 Range/Units 05:01 Sodium 139 (136-145) mEq/L Potassium 3.3 L (3.5-5.1) mEq/L Chloride 108 H (98-107) mEq/L Carbon Dioxide 23 (23-29) mEq/L BUN 25 H (8-23) mg/dL Creatinine 0.83 (0.70-1.30) mg/dL Glucose 181 H (70-105) mg/dL Calcium 8.1 L (8.6-10.3) mg/dL - VTE Reasons for not Prescribing Prophylaxis: Medical contraindication Documentation of Mechanical Device: Intermittent pneumatic compression device Consult Discharge Plan - Plan Referrals: Winnie Parikh CNP [Primary Care Provider] - 01/01/18 11:00 am
[2017-12-25] MEDS: Sucralfate 1 GM TABLET PO SCH ×4 (09:19→20:24)
[2017-12-25] MEDS: Insulin LISPRO 300 UNITS/3 ML VIAL SQ SCH ×4 (09:21→20:17)
--- NOTE | 2017-12-25 11:34 | Internal Med Progress Note ---
Hospitalist Progress Note - Encounter Date of Encounter: 12/25/17 Time of Encounter: 11:35 - Subjective Interval History: No acute events. Denies chest pain, SOB, n/v. Abdominal pain not bad today per patient. - Exam Vitals: Temp Pulse Resp BP Pulse Ox 98.4 F 71 18 153/73 100 12/25/17 07:40 12/25/17 11:05 12/25/17 07:40 12/25/17 07:40 12/25/17 07:40 Exam: General: awake, alert, appears stated age HEENT: dry mucus membranes, + conjunctival pallor Cardiovascular: reg rate and rhythm, normal S1 & S2, no murmurs no lower extremity edema Lungs:Normal breath sounds, no wheezes, or crackles. Abdomen:Soft, non tender, non-distended, no rigidity, + bowel sounds, no guarding Neurological: AAOx3, CN grossly intact Ext: extremity edema improved since yesterday - Assessment and Plan (1) Upper GI bleeding Current Visit: Yes Status: Acute Assessment and Plan: daily asa and nsaid use -no abd imaging obtained at [place], came to [facility], [place] with ngt in place drainging coffee ground emesis -he also had constipation for days prior to onset of symptoms, hx of hernia, gb surgery, need to rule out obstruction with amount of NGT outpt -ct a/p without acute findings, no obstruction, no apparent infection, no free air -1 gm hgb drop since adelfiled 10-->9.3 on admit -1 unit prbc on admit 12/22, 2 units PRBC on 12/24. H&H 8.3 today stable. H pylori biopsy sent after EGD Gastritis with ulcers seen on EGD 12/23, continue ppi and carafate. CT abdomen/pelvis (with contrast) 12/24 showed no acute findings plan is for colonoscopy today (2) Acute blood loss anemia Current Visit: Yes Status: Acute Assessment and Plan: Hgb most recently 15 on record review hgb 10 at [place], drop to 9.3 on admit labs here 2/2 acute gi bleed -1 unit prbc 12/22 2 units PRBC 12/24 -given mild trop elevation as below keep hgb >8 Hemoglobin improved to 8.3 Colonoscopy today (3) Diabetes mellitus Current Visit: Yes Status: Acute Assessment and Plan: Hyperglycemia at [place] with bs 400s, BHB >2, no anion gap--HHNK with one time 8 unit bolus of insulin 1L NS and bs to 200s, did NOT start insulin gtt on oral agents at home will need to rule out infection while here as cause of hyperglycemia with leukocytosis -bs here low 200s -as npo q 6 hr accu checks and SSI for now, would rather him be somewhat high is acutely seriously ill setting -agressive ivfs wtih LR -prn hypoglycemics -repeat BHB >2 -vbg without acidosis -leukocytosis garcia as below -UA >1000 glc, + ketones - CRP negative, afebrile, less likely infectious Insulin sliding scale and diabetic diet. (4) Leukocytosis Current Visit: Yes Status: Acute Assessment and Plan: WBC 22.4, may be stress reaction but need to rule out infectious etiology, increasing, without fever -CXR [place] neg -bl cx obtained at [place] pending -check ua: neg, no cx sent -ct a/p neg -check stool studies, pending -no abx at this time as no identifiable source of infection, afebrile. There is CT abdomen/pelvis scheduled for today. Will await results if patient possibly has a colitis or diverticulitis. Currently hemodynamically stable, afebrile. CRP negative and remains afebrile. Suspect not infectious but will recheck WBC tomorrow as well. (5) COPD (chronic obstructive pulmonary disease) Current Visit: Yes Status: Chronic Assessment and Plan: stable at this time -not on any standing nebs/inhalers at home -no home o2 -o2 prn, nebs prn (6) HTN (hypertension) Current Visit: Yes Status: Chronic Assessment and Plan: Notes he has not needed to take any home antihypertensive for months due to normotensive bps without them -monitor bp trends, no antihypertensives in acute gib setting (7) Hyperlipidemia Current Visit: Yes Status: Chronic Assessment and Plan: hold home statin at this time (8) Metabolic acidosis, increased anion gap Current Visit: Yes Status: Acute Assessment and Plan: Noted to have bicarb of 13 and no anion gap at [facility] Here he has elevated AG 17 and bicarb now up to 19 AG now closed, bicarb stable -vbg reviewed, no acidosis -lactate was 5s at [place] and 1.7 here -given asa use--agma--checked stat etoh, asa and Tylenol levels -all neg (9) Troponin level elevated Current Visit: Yes Status: Acute Assessment and Plan: Troponin Elevation Trop on admission here checked due to gib and anemia--0.06 -no cad hx, + hx diabetes, htn, hld -pt notes history of normal stress test outpt -trend trops- peaked at 0.06 and now normal, asx, now is negative. -ekg reviewed and appeared sinus rhythm and no st depression elevation of twi can be identified, + baseline artifact -tsh wnl, lipid panel w low hdl otherwise wnl Troponin now wnl. - Time Spent with Patient Total time spent is greater than 50% in coordination of care (as documented) at patient's floor/unit and/or counseling patient: Internal Medicine: Result - Labs CBC & Chem 7: 12/25/17 05:01 12/25/17 05:01 Labs: Short CBC 12/25/17 Range/Units 05:01 WBC 12.9 H (4.3-11.1) K/mcL Hgb 8.3 L (12.9-16.9) g/dL Hct 25.4 L (37.5-50.1) % Plt Count 262 (140-400) K/mcL Neutrophils # 8.5 (1.6-8.9) K/mcL BMP 12/25/17 05:01 Sodium 139 Potassium 3.3 L Chloride 108 H Carbon Dioxide 23 BUN 25 H Creatinine 0.83 Glucose 181 H Calcium 8.1 L - ABG Interpretation ABG results: PT/INR, D-dimer PT 13.7 Seconds (9.4-12.1) H 12/22/17 13:45 - Impressions Impressions Abdomen/Pelvis CT 12/24/17 15:15 IMPRESSION: 1. No acute abnormality in the abdomen or pelvis. 2. Colonic diverticulosis. 3. Status post cholecystectomy. 4. 1 cm indeterminate hypodensity in the mid pole the left kidney measuring mildly hyperdense to water without significant change in size from 2016. Consider further evaluation with nonemergent renal protocol CT or MRI. 5. Mild prostatomegaly. D/ / Newton Yu MD / Newton Yu MD Interpreting Provider: Newton Yu MD - VTE Reasons for not Prescribing Prophylaxis: Medical contraindication Documentation of Mechanical Device: Intermittent pneumatic compression device Consult Discharge Plan - Plan Referrals: Winnie Parikh CNP [Primary Care Provider] - 01/01/18 11:00 am (3) Diabetes mellitus Qualifiers: Diabetes mellitus type: type 2 Diabetes mellitus usp insulin use: without account manager relief use Diabetes mellitus complication status: with unspecified complications Qualified Code(s): E11.8 - Type 2 diabetes mellitus with unspecified complications (4) Leukocytosis Qualifiers: Leukocytosis type: unspecified Qualified Code(s): D72.829 - Elevated white blood cell count, unspecified (5) COPD (chronic obstructive pulmonary disease) Qualifiers: COPD type: unspecified COPD Qualified Code(s): J44.9 - Chronic obstructive pulmonary disease, unspecified (6) HTN (hypertension) Qualifiers: Hypertension type: essential hypertension Qualified Code(s): I10 - Essential (primary) hypertension (7) Hyperlipidemia Qualifiers: Hyperlipidemia type: unspecified Qualified Code(s): E78.5 - Hyperlipidemia, unspecified
[2017-12-25] MEDS ORDERED: *HR* Midazolam HCl 5 MG/5 ML VIAL IVP ONE (11:50)
[2017-12-25] MEDS ORDERED: *HR* FentaNYL (PF) 100 MCG/2 ML VIAL ONE (11:51)
[2017-12-25] MEDS: 0.9 % Sodium Chloride 1,000 ML IVC SCH (13:29)
[2017-12-26] MEDS: 0.9 % Sodium Chloride 1,000 ML IVC SCH (03:25)
[2017-12-26 04:12] LABS: Basophils % 0.1 %; Eosinophils # 0.1 K/mcL (0.0-0.6); Hematocrit 23.7 % (37.5-50.1); Hemoglobin 7.5 g/dL (12.9-16.9); Immature Granulocytes % 0.8 % (0-4); Lymphocytes # 1.9 K/mcL (0.6-4.6); Lymphocytes % 22.3 %; Mean Corpuscular HGB Conc 31.6 g/dL (31.6-35.5); Mean Corpuscular Volume 91.5 fL (83.0-100.0); Mean Platelet Volume 10.5 fL (9.4-12.4); Monocytes # 0.8 K/mcL (0.0-1.3); Monocytes % 9.1 %; Neutrophils # 5.8 K/mcL (1.6-8.9); Nucleated Red Blood Cells 0.2 /100 WBC (0); Platelet Count 238 K/mcL (140-400); Red Blood Count 2.59 M/mcL (4.19-5.50); Red Cell Distribution Width 17.1 % (11.5-14.5); Segmented Neutrophils % 66.7 %
[2017-12-26 04:35] LABS: BUN/Creatinine Ratio 29 (6-26); Blood Urea Nitrogen 22 mg/dL (8-23); Calcium 7.9 mg/dL (8.6-10.3); Carbon Dioxide 23 mEq/L (23-29); Chloride 107 mEq/L (98-107); Glucose 168 mg/dL (70-105); Osmolality,Calculated 287 (280-300); Potassium 3.4 mEq/L (3.5-5.1); Sodium 135 mEq/L (136-145); eGFR For Non-African Americans > 60 (> 60)
[2017-12-26] MEDS: Sucralfate 1 GM TABLET PO SCH ×4 (07:59→20:23)
[2017-12-26] MEDS: Insulin LISPRO 300 UNITS/3 ML VIAL SQ SCH ×4 (08:00→20:22)
--- NOTE | 2017-12-26 09:02 | Internal Med Progress Note ---
Hospitalist Progress Note - Encounter Date of Encounter: 12/26/17 - Subjective Interval History: No acute events. Denies chest pain, SOB, n/v. Abdominal pain not bad today per patient. - Exam Vitals: Temp Pulse Resp BP Pulse Ox 98.1 F 70 20 121/56 100 12/26/17 07:45 12/26/17 07:45 12/26/17 07:45 12/26/17 07:45 12/26/17 07:45 Exam: General: awake, alert, appears stated age HEENT: dry mucus membranes, + conjunctival pallor Cardiovascular: reg rate and rhythm, normal S1 & S2, no murmurs no lower extremity edema Lungs:Normal breath sounds, no wheezes, or crackles. Abdomen:Soft, non tender, non-distended, no rigidity, + bowel sounds, no guarding Neurological: AAOx3, CN grossly intact Ext: extremity edema improved since yesterday - Assessment and Plan (1) Upper GI bleeding Current Visit: Yes Status: Acute (2) Acute blood loss anemia Current Visit: Yes Status: Acute (3) Diabetes mellitus Current Visit: Yes Status: Acute (4) Leukocytosis Current Visit: Yes Status: Acute (5) COPD (chronic obstructive pulmonary disease) Current Visit: Yes Status: Chronic (6) HTN (hypertension) Current Visit: Yes Status: Chronic (7) Hyperlipidemia Current Visit: Yes Status: Chronic (8) Metabolic acidosis, increased anion gap Current Visit: Yes Status: Acute (9) Troponin level elevated Current Visit: Yes Status: Acute - Time Spent with Patient Total time spent is greater than 50% in coordination of care (as documented) at patient's floor/unit and/or counseling patient: Internal Medicine: Result - Labs CBC & Chem 7: 12/26/17 03:44 12/26/17 03:44 Labs: Short CBC 12/26/17 Range/Units 03:44 WBC 8.7 (4.3-11.1) K/mcL Hgb 7.5 L (12.9-16.9) g/dL Hct 23.7 L (37.5-50.1) % Plt Count 238 (140-400) K/mcL Neutrophils # 5.8 (1.6-8.9) K/mcL BMP 12/26/17 03:44 Sodium 135 L Potassium 3.4 L Chloride 107 Carbon Dioxide 23 BUN 22 Creatinine 0.75 Glucose 168 H Calcium 7.9 L - ABG Interpretation ABG results: PT/INR, D-dimer PT 13.7 Seconds (9.4-12.1) H 12/22/17 13:45 - VTE Reasons for not Prescribing Prophylaxis: Medical contraindication Documentation of Mechanical Device: Intermittent pneumatic compression device Consult Discharge Plan - Plan Referrals: Winnie Parikh CNP [Primary Care Provider] - 01/01/18 11:00 am (3) Diabetes mellitus Qualifiers: Diabetes mellitus type: 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-way use Diabetes mellitus complication status: with unspecified complications Qualified Code(s): E11.8 - Type 2 diabetes mellitus with unspecified complications (4) Leukocytosis Qualifiers: Leukocytosis type: unspecified Qualified Code(s): D72.829 - Elevated white blood cell count, unspecified (5) COPD (chronic obstructive pulmonary disease) Qualifiers: COPD type: unspecified COPD Qualified Code(s): J44.9 - Chronic obstructive pulmonary disease, unspecified (6) HTN (hypertension) Qualifiers: Hypertension type: essential hypertension Qualified Code(s): I10 - Essential (primary) hypertension (7) Hyperlipidemia Qualifiers: Hyperlipidemia type: unspecified Qualified Code(s): E78.5 - Hyperlipidemia, unspecified
--- NOTE | 2017-12-26 09:20 | Discharge Summary ---
- NOTES TO OUTPATIENT PROVIDER Notes to Outpatient Provider: Follow-up CBC in 2-3 days. Orders not resulted at time of discharge: Pending orders 12/25/17 03:51 Procalcitonin AM 0400 12/26/17 10:30 Ferritin Routine Hemoglobin and Hematocrit [HEME] Routine Iron Profile Routine 12/27/17 04:00 BMP [Basic Metabolic Panel] AM 0400 Complete Blood Count [HEME] AM 0400 12/28/17 04:00 BMP [Basic Metabolic Panel] AM 0400 Complete Blood Count [HEME] AM 0400 Date of Encounter: 12/26/17 Time of Encounter: : - Discharge Diagnosis (1) Acute blood loss anemia Priority: Primary Status: Acute Assessment and Plan: Secondary to gastric ulcers and diverticular bleed. (2) Diverticulosis of intestine with bleeding Priority: Secondary Status: Acute Qualifiers: Diverticulosis site: diverticulosis of large intestine Qualified Code(s): K57.31 - Diverticulosis of large intestine without perforation or abscess with bleeding (3) Upper GI bleeding Priority: Secondary Status: Acute (4) Diabetes mellitus Priority: Secondary Status: Acute Qualifiers: Diabetes mellitus type: type 2 Diabetes mellitus senior care insulin use: without manager intermediate use Diabetes mellitus complication status: with unspecified complications Qualified Code(s): E11.8 - Type 2 diabetes mellitus with unspecified complications (5) Leukocytosis Priority: Secondary Status: Acute Qualifiers: Leukocytosis type: unspecified Qualified Code(s): D72.829 - Elevated white blood cell count, unspecified (6) COPD (chronic obstructive pulmonary disease) Priority: Secondary Status: Chronic Qualifiers: COPD type: unspecified COPD Qualified Code(s): J44.9 - Chronic obstructive pulmonary disease, unspecified (7) HTN (hypertension) Priority: Secondary Status: Chronic Qualifiers: Hypertension type: essential hypertension Qualified Code(s): I10 - Essential (primary) hypertension (8) Hyperlipidemia Priority: Secondary Status: Chronic Qualifiers: Hyperlipidemia type: unspecified Qualified Code(s): E78.5 - Hyperlipidemia , unspecified (9) Metabolic acidosis, increased anion gap Priority: Secondary Status: Acute (10) Troponin level elevated Priority: Secondary Status: Acute Hospital course: Mr. Redd is a 77 year old male who presented to [facility] via EMS due to GI bleed. He was using bathroom this morning and there was large amount of black and red stool in toilet. On EMS arrival to [place] there was reported blood in stool was visualized, sbp in 80s, weak and lightheaded but no syncope. He uses aspirin and aleve regularly. BP has been stable and patient transferred here. He was on Protonix drip. WBC found to be elevated at 23k but resolved without antibiotics and there was no signs of infection on imaging. He was afebrile. Patient was admitted for GI bleed. He was given a total of 3 units PRBC during this admission. A CT abdomen/pelvis was negative. Surgery was consulted. He underwent EGD that showed gastritis and 5 non- bleeding ulcers. He then underwent a colonoscopy that showed diverticulosis with signs of recent bleeding. Iron studies pending, he is being given Venofer and will be discharged once hemoglobin >8.0. - Time Spent with Patient Total time spent providing and/or coordinating discharge services: - Discharge Medications Prescriptions: Omeprazole [PriLOSEC] 40 mg PO DAILY@0630 #60 capsule. Sucralfate [Carafate] 1 gm PO QIDAC #120 tablet Home Medications: Albuterol Sulfate [Proair Hfa] 2 puff IH QID PRN 09/19/15 [History] Allopurinol [Zyloprim 100 MG] 100 mg PO DAILY 09/19/15 [History] Enalapril Maleate [Vasotec] 5 mg PO DAILY 09/19/15 [History] Guaifenesin [Mucinex] 600 mg PO BID PRN 09/19/15 [History] glipiZIDE [Glucotrol] 5 mg PO DAILY 09/19/15 [History] Lovastatin [Mevacor] 20 mg PO HS 12/23/17 [History] Docusate Sodium [Colace] 100 mg PO DAILY #30 capsule 12/26/17 [Rx] Ferrous Sulfate 325 mg PO DAILY #30 tablet 12/26/17 [Rx] Omeprazole [PriLOSEC] 40 mg PO DAILY@0630 #60 capsule. 12/26/17 [Rx] Sucralfate [Carafate] 1 gm PO QIDAC #120 tablet 12/26/17 [Rx] Allergies/Adverse Reactions: 3 Allergy/AdvReac Type Severity Reaction Status Date / Time codeine Allergy See Verified 12/22/17 07:19 Comments doxycycline AdvReac Nausea Verified 12/22/17 07:18 Date of admission: 12/24/17 12:15 Primary care physician: Winnie Parikh CNP Consults: 12/22/17 16:57 Consult to Surgery [CONS] Routine Consulting Provider: Nasima Valadez Reason for Consult: acute upper gi bleed Call Completed: Yes Discharging clinician: Kaylan Ortega - Constitutional Vitals: Temp Pulse Resp BP Pulse Ox 98.1 F 70 20 121/56 100 12/26/17 07:45 12/26/17 07:45 12/26/17 07:45 12/26/17 07:45 12/26/17 07:45 General appearance: Present: A&O X 3, no acute distress Exam: NAD - Head Head exam: Present: atraumatic, normocephalic - Eye Eye exam: Present: PERRL, conjuntiva pink, sclera anicteric Pupils: Present: PERRL - Neck Neck exam general surgery: Present: supple, trachea midline. Absent: lymphadenopathy - Respiratory Respiratory exam: Present: CTAB. Absent: accessory muscle use, rales, rhonchi, wheezes - Cardiovascular Cardiovascular exam: Present: RRR, +S1, +S2. Absent: diastolic murmur, gallop, rubs, systolic murmur - GI/Abdominal GI/Abdominal exam: Present: normal bowel sounds, soft, no peritoneal signs. Absent: distended, tenderness - Extremities Exam Extremities exam: Present: warm, radial pulses palpable and symmetrical. Absent : calf tenderness, cyanotic, pedal edema - Neurological Exam Neurological exam: Present: CN II-XII intact, oriented X3, no focal deficits. Absent: pronater drift, facial droop, speech deficit - Skin Skin exam: Present: dry, intact - Patient Status Disposition: Home, Self-Care Condition: Good Functional capacity at discharge: independent ambulation Overall status at discharge: patient is progressing back to baseline - Discharge Instructions Follow Up With: Winnie Parikh CNP [Primary Care Provider] - 01/01/18 11:00 am - Diet and Activity Activity: increase activity as tolerated Diet: advance to your usual diet - VTE Reasons for not Prescribing Prophylaxis: Medical contraindication Documentation of Mechanical Device: Intermittent pneumatic compression device
[2017-12-26] MEDS ORDERED: Iron Sucrose Complex 200 MG in 0.9 % Sodium Chloride 100 ML IVPB SCH (11:00)
[2017-12-26] MEDS ORDERED: Iron Sucrose Complex 400 MG in 0.9 % Sodium Chloride 250 ML IVPB ONE (11:00)
[2017-12-26 11:24] LABS: Hematocrit 24.2 % (37.5-50.1); Hemoglobin 7.7 g/dL (12.9-16.9)
[2017-12-26 12:09] LABS: Ferritin 47 ng/mL (20-250)
[2017-12-26 12:19] LABS: % Iron Saturation 7 % (20-55); Iron 22 mcg/dL (65-175); Transferrin 213 mg/dL (203-362)
[2017-12-27 04:11] LABS: Basophils % 0.2 %; Eosinophils # 0.2 K/mcL (0.0-0.6); Eosinophils % 1.9 %; Hematocrit 23.8 % (37.5-50.1); Hemoglobin 7.6 g/dL (12.9-16.9); Immature Granulocytes % 0.7 % (0-4); Lymphocytes # 2.5 K/mcL (0.6-4.6); Lymphocytes % 27.6 %; Mean Corpuscular HGB Conc 31.9 g/dL (31.6-35.5); Mean Corpuscular Hemoglobin 29.1 pg (28.0-33.3); Mean Corpuscular Volume 91.2 fL (83.0-100.0); Mean Platelet Volume 10.4 fL (9.4-12.4); Monocytes # 0.9 K/mcL (0.0-1.3); Monocytes % 9.9 %; Neutrophils # 5.4 K/mcL (1.6-8.9); Nucleated Red Blood Cells 0.3 /100 WBC (0); Platelet Count 237 K/mcL (140-400); Red Blood Count 2.61 M/mcL (4.19-5.50); Red Cell Distribution Width 17.5 % (11.5-14.5); Segmented Neutrophils % 59.7 %
[2017-12-27 04:25] LABS: BUN/Creatinine Ratio 18 (6-26); Blood Urea Nitrogen 14 mg/dL (8-23); Calcium 8.1 mg/dL (8.6-10.3); Carbon Dioxide 24 mEq/L (23-29); Chloride 110 mEq/L (98-107); Glucose 156 mg/dL (70-105); Osmolality,Calculated 292 (280-300); Potassium 3.4 mEq/L (3.5-5.1); Sodium 139 mEq/L (136-145); eGFR For Non-African Americans > 60 (> 60)
[2017-12-27] MEDS ORDERED: Iron Sucrose Complex 400 MG in 0.9 % Sodium Chloride 250 ML IVPB ONE (07:00)
[2017-12-27] MEDS: Sucralfate 1 GM TABLET PO SCH ×3 (07:57→16:11)
[2017-12-27] MEDS: Insulin LISPRO 300 UNITS/3 ML VIAL SQ SCH ×2 (08:09→12:02)
--- NOTE | 2017-12-27 08:36 | General Surgery Progress Note ---
Date of Encounter: 12/26/17 Time of Encounter: 08:35 - Assessment and Plan (1) Upper GI bleeding Current Visit: Yes Status: Acute 77M with UGIB and LGIB; gastric ulcers found on EGD; diverticulosis throughout colon; okay for d/c; follow up in 2 weeks for evaluation of ulcers and diverticulosis Subjective Patient reports: no new complaints Objective Vital Signs - Last 8 Hours Temp Pulse Resp BP Pulse Ox 12/27/17 07:15 98.2 F 66 18 134/65 100 12/27/17 03:26 99.0 F 72 18 126/52 99 Intake and Output 12/26/17 12/27/17 12/27/17 23:59 07:59 15:59 Intake Total 240 / 240 Output Total 720 / 720 800 / 800 Balance -480 / -480 -800 / -800 Intake: Oral 240 / 240 Output: Urine 720 / 720 800 / 800 Other: Meal Dinner Percent of Meal Consumed 100% Weight 108.1 kg Blood Glucose* 200 181 Patient Weight 12/27/17 23:59 Weight 108.1 kg - General physical appearance no distress - Respiratory normal expansion, normal respiratory effort - Cardiovascular Cardiovascular exam: Present: RRR - Neurologic CN 2-12 grossly intact - Labs 12/27/17 03:47 12/27/17 03:47 Diabetes panel 12/27/17 Range/Units 03:47 Sodium 139 (136-145) mEq/L Potassium 3.4 L (3.5-5.1) mEq/L Chloride 110 H (98-107) mEq/L Carbon Dioxide 24 (23-29) mEq/L BUN 14 (8-23) mg/dL Creatinine 0.76 (0.70-1.30) mg/dL Glucose 156 H (70-105) mg/dL Calcium 8.1 L (8.6-10.3) mg/dL Calcium panel 12/27/17 Range/Units 03:47 Calcium 8.1 L (8.6-10.3) mg/dL Pituitary panel 12/27/17 Range/Units 03:47 Sodium 139 (136-145) mEq/L Potassium 3.4 L (3.5-5.1) mEq/L Chloride 110 H (98-107) mEq/L Carbon Dioxide 24 (23-29) mEq/L BUN 14 (8-23) mg/dL Creatinine 0.76 (0.70-1.30) mg/dL Glucose 156 H (70-105) mg/dL Calcium 8.1 L (8.6-10.3) mg/dL Adrenal panel 12/27/17 Range/Units 03:47 Sodium 139 (136-145) mEq/L Potassium 3.4 L (3.5-5.1) mEq/L Chloride 110 H (98-107) mEq/L Carbon Dioxide 24 (23-29) mEq/L BUN 14 (8-23) mg/dL Creatinine 0.76 (0.70-1.30) mg/dL Glucose 156 H (70-105) mg/dL Calcium 8.1 L (8.6-10.3) mg/dL - VTE Reasons for not Prescribing Prophylaxis: Medical contraindication Documentation of Mechanical Device: Intermittent pneumatic compression device Consult Discharge Plan - Plan Referrals: Winnie Parikh CNP [Primary Care Provider] - 01/01/18 11:00 am Prescriptions: Docusate Sodium [Colace] 100 mg PO DAILY #30 capsule Ferrous Sulfate 325 mg PO DAILY #30 tablet Omeprazole [PriLOSEC] 40 mg PO DAILY@0630 #60 capsule. Sucralfate [Carafate] 1 gm PO QIDAC #120 tablet
--- NOTE | 2017-12-27 09:48 | Event Note ---
Date of Encounter: 12/27/17 Time of Encounter: 09:46 S: no acute events O: vitals reviewed. Physical exam: no acute distress, cardiac and resp exam normal, no edema, abdomen is soft, nt/nd. Ext: no edema. Procalcitonin from admission 0.12. A: Acute blood loss anemia Upper GI bleed - gastric ulcers Lower GI bleed - diverticular Possible diverticulitis P: Finish dose of Venofer today Okay for discharge Repeat CBC in 2-3 days 7 day course of Augmentin
[2017-12-27 16:27] VITALS: BP 107/43
== END 2017-12-27 18:29 | disposition home or self-care (01) | DRG 378 ==
LOC: 2NNU → SUATTDRO 09:51
PROVIDERS: ADMIT Internal Medicine; ATTEND Internal Medicine
PROC: ENDOEBX (2017-12-23 15:30)